=== PATIENT | female | born 1945 | race Caucasian/White ===

== ENCOUNTER 2019-05-13 08:39 | Emergency (ER) | payer OTHER, SELFPAY ==
[2019-05-13 08:40] VITALS: BP 143/87; PULSE 89; RESP 18; TEMP 37; O2SAT 98; BMI 35.7
--- NOTE | 2019-05-13 08:50 | EKG12_ITS ---
Test Reason : PALPS Blood Pressure : / mmHG Vent. Rate : 091 BPM Atrial Rate : 091 BPM P-R Int : 182 ms QRS Dur : 074 ms QT Int : 396 ms P-R-T Axes : 067 040 057 degrees QTc Int : 487 ms Sinus rhythm with frequent Premature ventricular complexes Otherwise normal ECG Confirmed by LOTUS HOLLAND, VAN ([id number]), supervising film or videotape editor ELVIA BARAHONA ([id number]) on 05/15/2019 11:25:29 AM Referred By: SEBASTIEN Confirmed By:VAN GAUTAM MD
[2019-05-13 08:59] VITALS: BP 175/80; PULSE 89; RESP 17; O2SAT 97
--- NOTE | 2019-05-13 09:03 | RAD_ITS ---
STUDY: X-RAY CHEST REASON FOR EXAM: Female, 73 years old. Palpitations TECHNIQUE: Frontal view of the chest COMPARISON: 10/2016 FINDINGS: The lungs are clear. There are no pleural effusions. There is no pneumothorax. The heart is normal in size. The visualized osseous structures are within normal limits. RAD/Chest 1 View (Portable) IMPRESSION: No acute thoracic pathology. Electronically Signed: Elton Amezquita, at 9:24 EST Tel , Service support ,
[2019-05-13 09:06] LABS: Absolute Lymphocyte Count 1.71 X10^3/uL (0.83-4.51); Absolute Neutrophil Count 6.6 X10^3/uL (2.0-7.7); Basophil# 0.04 X10^3/uL; Basophil% 0.5 % (0-1); Eosinophil# 0.06 X10^3/uL; Eosinophils% 0.7 % (0-5); Hematocrit 44.9 % (37-47); Hemoglobin 14.2 g/dL (12.0-15.0); Lymphocyte # 1.71 X10^3/ul (4.0); Lymphocyte % 19.3 % (19-41); Mean Corp Hgb Conc 31.6 g/dL (32-36); Mean Corpuscular Hgb 26.5 pg (27.0-32.0); Mean Corpuscular Volume 83.9 fL (81-99); Mean Platelet Vol. 9.9 fl (6.2-12.0); Monocyte# 0.34 X10^3/uL; Monocyte% 3.8 % (0-10); NRBC Flagged by Analyzer 0 % (0-5); Neutrophil # 6.63 X10^3/uL (2.7-7.7); Neutrophil % 74.7 % (47-70); Platelet Count 316 K/mm3 (150-450); RBC Distribution Width CV 13.5 % (11.6-14.6); RBC Distribution Width SD 41.4 fl (35.1-43.9); Red Blood Count 5.35 M/mm3 (4.2-5.4); White Blood Count 8.9 K/mm3 (4.4-11.0)
[2019-05-13] MEDS: Aspirin 81 MG TAB.CHEW 324 MG PO (09:12)
[2019-05-13 09:13] VITALS: O2SAT 95
[2019-05-13 09:21] LABS: Anion Gap 7 (5-15); BUN 9 mg/dL (7-18); BUN/Creat Ratio 9.1 RATIO (10-20); Calcium,Total 9.5 mg/dL (8.5-10.1); Chloride 100 mmol/L (98-107); Creatinine, Serum 0.98 mg/dL (0.55-1.02); EST Glomerular Filtration Rate 59 mL/min (>60); Est Glom Filt Rate - Afr Amer 71 mL/min (>60); Estimated Creatinine Clearance 46.69 ml/min; Glucose 179 mg/dL (74-106); Potassium 3.7 mmol/L (3.5-5.1); Sodium Level 136 mmol/L (136-145)
--- NOTE | 2019-05-13 10:23 | ED.VIS.GEN ---
History of Present Illness Chief Complaint: Palpitations Informant: Patient Onset: Days Maximum Severity: Mild Narrative: Patient has history of hypertension that is very stable she denies any other health history. 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 she has intermittent episodes of trigeminy and she feels some of these extra heartbeats, she has no history of thyroid disorder her review of systems are all negative she is eating and drinking well bowel and bladder habits are unremarkable and again she is executing all of her daily activities without difficulty Past Medical History - Allergies and Home Meds Allergies/Adverse Reactions: Allergies No Known Allergies Allergy (Verified 05/13/19 08:42) Primary Care Physician: Lupe Torres MD [Primary Care Provider] - Past Medical History: - Smoking Status: Never smoker Review of Systems ROS: - Pretension General: Denies: Chills, Fever, Sweats Eyes: Denies: Visual changes - bilaterally, Diplopia ENT: Denies: Rhinorrhea, Sore throat Cardiovascular: Reports: Palpitations. Denies: Chest pain Respiratory: Denies: Dyspnea, Cough, Dyspnea on exertion Gastrointestinal: Denies: Abdominal pain, Nausea, Vomiting, Diarrhea, Melena, Hematochezia Genitourinary: Denies: Dysuria, Hematuria, Frequency Musculoskeletal: Denies: Back pain, Extremity Pain Skin: Denies: Rash, Wounds Neurological: Denies: Headache, Weakness, Numbness Physical Exam Vital Signs/Narrative: Vital Signs Temp Pulse Resp BP Pulse Ox 05/13/19 09:13 95 05/13/19 08:59 89 17 175/80 H 97 05/13/19 08:40 98.6 F 89 18 143/87 H 98 General: Well nourished, Well developed, No Acute Distress Head: Normocephalic, Atraumatic Eyes: Perrl, EOMI ENT: Moist mucous membranes, No rhinorrhea Neck: Supple, Nontender Cardiovascular: Regular rate, Regular rhythm, No murmurs, - - He has intermittent trigeminy on the claims administrator Respiratory: No distress, CTA bilaterally, Chest nontender Abdomen: Soft, Nontender, Nondistended, Normal bowel sounds Back: Nontender, Normal Inspection Extremities: Nontender, No edema Skin: Normal color, No rash Neurological: Alert, Oriented x3, Cranial nerves II-XII grossly intact, Normal Strength, Normal Sensation Psychological: Normal affect, Normal Mood Diagnostic/Tx/Re-eval - Medical Decision Making Patient's EKG shows a sinus rhythm with some trigeminy no acute injury pattern appreciated rate 90 When screening evaluation with labs magnesium thyroid studies that are pending I spoke with Dr. HOANG SANDOVAL, call cardiology discussed case in detail the patient is comfortable with discharge home does not feel admission would be necessary as she is feeling at baseline except for the occasional sense of heartbeats, He recommended she be started on metoprolol XL 25 mg daily and following up with the office tomorrow or the next day and returning for change in symptoms, the patient understands her thyroid function studies are still pending she was given first dose of the metoprolol he will she will follow-up with her dental insurance biller as above and return for change in symptoms Home stable Final impression palpitations related to PVCs and episodes of trigeminy ED Disposition - Plan for ED Patient: Instructions: Premature Ventricular Contractions Prescriptions: Metoprolol(XL)Succ [Toprol Xl (Beta Baylee)] 25 mg PO DAILY #30 tab Prescription Printed Referrals: Lupe Torres MD [Primary Care Provider] -
[2019-05-13 10:25] LABS: Magnesium 2.6 mg/dL (1.6-2.6)
[2019-05-13] MEDS: Metoprolol(XL)Succ 25 MG Tablet PO (10:44)
[2019-05-13 10:45] VITALS: BP 156/94; PULSE 80; PULSE 84; RESP 13; RESP 20; O2SAT 95; O2SAT 96
[2019-05-13 11:09] LABS: T4 Free Direct 1.11 ng/dL (0.76-1.46)
== END 2019-05-13 10:56 | disposition home or self-care (01) ==
PROVIDERS: Emergency Provider Emergency Medicine; PCP Family Medicine
DX: I49.3 Ventricular premature depolarization (principal); R00.8 Other abnormalities of heart beat; I10 Essential (primary) hypertension; Z79.899 Other long term (current) drug therapy
CPT/HCPCS: 71045; 80048; 83735; 84439; 84443; 84484; 85025; 93005; 99285; A4216

== ENCOUNTER → 2019-05-21 06:06 | Outpatient (CLI) | payer OTHER, SELFPAY ==
[2019-05-16 10:25] VITALS: BMI 34.7
--- NOTE | 2019-05-21 06:07 | ECHOCS_ITS ---
Reason For Study: Arrhythmia Left Ventricle Normal LV size. Left ventricular systolic function is normal. The estimated ejection fraction is 60 %. Stage 1 diastolic dysfunction. No regional wall motion abnormalities noted. Right Ventricle Normal RV size. Normal systolic function. Atria Normal left atrium. Normal right atrium. Mitral Valve Normal mitral valve. Tricuspid Valve The tricuspid valve is not well visualized. Aortic Valve Trisinus/trileaflet aortic valve. Pulmonic Valve The pulmonic valve is not well visualized. Great Vessels Normal aortic root. The pulmonary artery is normal size. Normal inferior vena cava. Pericardium/Pleural No pericardial effusion. Medication 22 gauge I.V. with prn adaptor inserted into right arm. Diluted definity 3ml given slow IV push to enhance endocardial definition. Performed a rapid injection of agitated mix of 9 cc saline and 1cc air to assess for atrial septal defect. MMode/2D Measurements & Calculations LVIDd: 4.6 cm IVSd: 1.1 cm LA dimension: 3.9 cm LVIDs: 3.1 cm LVPWd: 1.1 cm RVDd: 3.3 cm FS: 31.4 % LAV(MOD-bp): 54.0 ml LA A4 area: 17.6 cm2 RA A4 area: 14.5 cm2 LAV(MOD-bp) Indexed: 26.8 ml/m2 LAV(MOD-sp2): 55.9 ml LAV(MOD-sp4): 52.3 ml Time Measurements MV dec time: 0.26 sec Doppler Measurements & Calculations MV E max amarjit: 65.3 cm/sec Lat Peak E' Amarjit: 8.8 cm/sec Med Peak E' Amarjit: 7.9 cm/sec MV A max amarjit: 88.3 cm/sec E/E' lat: 7.4 E/E' med: 8.3 MV E/A: 0.74 MV V2 max: 112.7 cm/sec MV P1/2t max amarjit: 81.9 cm/sec Ao V2 max: 137.7 cm/sec MV max P.1 mmHg MV P1/2t: 84.4 msec Ao max P.6 mmHg MV V2 mean: 62.5 cm/sec MV dec slope: 284.2 cm/sec2 MV mean P.8 mmHg MVA(P1/2t): 2.6 cm2 MV V2 VTI: 29.5 cm LV V1 max: 104.4 cm/sec PA V2 max: 83.8 cm/sec LV V1 max P.4 mmHg Interpretation Summary Normal LV size. Left ventricular systolic function is normal. The estimated ejection fraction is 60 %. Stage 1 diastolic dysfunction. Contrast injection was performed. Ordering Physician: Jese Watts Referring Physician: Jese Watts Performed By: Neo Gonzalez RCS
--- NOTE | 2019-05-21 13:17 | STRESSREP ---
Stress Test Report Exercise stress test. 73-year-old lady with a history of chest pain. Stress protocol: Resting EKG demonstrates normal sinus rhythm with a rate of 69 bpm normal intervals are noted resting blood pressures 160/80 mmHg.. The patient exercised according to regular Sarvan protocol for total duration of 6 minutes and 30 seconds. The maximum heart rate attained was 142 bpm which was 95% of maximum predicted heart rate the maximum workload was 7.7 metabolic equivalents. The patient maintained sinus rhythm throughout the recording. At rest there were no ST or T wave changes noted suggest ischemia peak exercise upsloping ST changes were noted with no meet the criteria for ischemia. No clinical angina was noted. The resting blood pressure was 160/80 mmHg with a peak blood pressure 164/70 mmHg rate-pressure product was 21,400. No clinical angina was noted. Myocardial perfusion protocol. 11.6 mCi of technetium 99m sestamibi was injected at rest. The patient exercised according to regular Sravan protocol for a total duration of 6-1/2 minutes at peak exercise 34.3 mCi of technetium 99m sestamibi was injected stress images were obtained stress and rest images were reconstructed and compared in the short axis vertical long horizontal long axis. Gated images also obtained Perfusion SPECT analysis: Review of the stress images demonstrate normal uptake of tracer noted in all areas of myocardium the resting images similar demonstrate normal uptake of tracer noted in all areas of the myocardium. No reversibility is no suggest ischemia no previous infarct is noted. Gated SPECT analysis: The gated ejection fraction is 75%. Conclusion: Normal exercise myocardial perfusion stress test with no evidence of ischemia at a moderate workload. Preserved ejection fraction. No arrhythmias noted.
== END ==
PROVIDERS: PCP Family Medicine; Referring Provider Internal Medicine Cardiovascular Disease; Visit Provider Internal Medicine Cardiovascular Disease
DX: I49.9 Cardiac arrhythmia, unspecified (principal); R00.2 Palpitations; I10 Essential (primary) hypertension
CPT/HCPCS: 78452; 93017; 93225; 93226; 93306; A9500; Q9957; A4216; C8929

== ENCOUNTER 2020-02-01 19:04 | Emergency (ER) | payer OTHER, SELFPAY ==
[2019-08-15 11:18] VITALS: BMI 34.7
[2020-02-01 19:04] VITALS: BP 139/93; PULSE 85; RESP 15; TEMP 36.8; O2SAT 98; BMI 32.8
--- NOTE | 2020-02-01 19:48 | ED.DCSUM_ITS ---
History of Present Illness Chief Complaint: General Illness Informant: Patient, Family Narrative: 74-year-old female states that she has been generally weak for a month. She is not falling. She can walk. She is not dizzy or lightheaded. She does states that she is tired a lot. She is not had any fever or chills. She states that she followed up with her PCP just this week and had blood work which was all normal. This included a chest x-ray and a urinalysis as well as thyroid testing. She states that she is just not sure what to do at this time. - Past Medical History (1) Essential (primary) hypertension Status: Chronic (2) Hyperlipidemia Status: Chronic Past Medical History - Allergies and Home Meds Allergies/Adverse Reactions: Allergies No Known Allergies Allergy (Verified 02/01/20 19:09) Primary Care Physician: Lupe Torres MD [Primary Care Provider] - Prior records reviewed: Yes Past Medical History: - - Reviewed in problem list Lives: Alone Smoking Status: Never smoker Alcohol: None Drugs: None Review of Systems General: Reports: Malaise. Denies: Chills, Fever Eyes: Denies: Visual changes - bilaterally, Diplopia ENT: Denies: Rhinorrhea, Sore throat Cardiovascular: Denies: Chest pain, Palpitations Respiratory: Denies: Dyspnea, Cough, Dyspnea on exertion Gastrointestinal: Reports: Nausea, Constipation. Denies: Vomiting, Diarrhea Genitourinary: Denies: Dysuria, Hematuria, Frequency Musculoskeletal: Denies: Back pain, Extremity Pain Skin: Denies: Rash, Wounds Neurological: Denies: Headache, Weakness, Parasthesia, Numbness, -, - Endocrine: Denies: Polyuria, Polydipsia, Heat intolerance, Cold intolerance, -, - Physical Exam Vital Signs/Narrative: Vital Signs Temp Pulse Resp BP Pulse Ox 02/01/20 19:04 98.3 F 85 15 139/93 H 98 Inital Vital Signs reviewed: Yes Head: Normocephalic, Atraumatic Eyes: Perrl ENT: Moist mucous membranes Neck: Supple, Nontender Cardiovascular: Regular rate, Regular rhythm Respiratory: No distress, CTA bilaterally Abdomen: Soft, Nontender, Nondistended Back: Nontender, Normal Inspection Extremities: Nontender, No edema Skin: Normal color, No rash Neurological: Alert, Oriented x3, Cranial nerves II-XII grossly intact Psychological: Normal affect, Normal Mood Diagnostic/Tx/Re-eval Laboratory Data 02/01/20 20:05 Urine Color Yellow Urine Clarity Clear Urine pH 7.0 Ur Specific [place] 1.010 Urine Protein Negative Urine Glucose (UA) Normal Urine Ketones 15 H Urine Occult Blood Negative Urine Nitrite Negative Urine Bilirubin Negative Urine Urobilinogen Normal Ur Leukocyte Esterase 100 H Urine RBC 0 SEEN Urine WBC 0-5 SEEN Ur Squamous Epith Cells 0-5 SEEN Urine Bacteria 0 SEEN Urine Mucus 0 SEEN - Medical Decision Making Patient presents with general weakness although her symptoms are vague and she is not having any episodes of falling or difficulty walking she just states he has a brain fog and she is not eating as many calories that she used to. She states she has lost 15 pounds but she has also been eating all protein and has not been eating any fruits or vegetables or carbs. I discussed this with her that this is very similar to a keto diet and that this may be why she feels so ill. I was able to check her lab work from her primary care physician which was all normal including thyroid studies. I did check a urinalysis today and there is ketones in her urine which is consistent with her history of eating less and eating only proteins and meats. I did also discuss with her if she is tired most of the day but there is a possibility that maybe she has sleep apnea. She states she does snore but she does not know if she has apneic episodes. I counseled her that she needs to follow-up with her PCP for discussion of these subjects. Patient was amenable to this plan. I do not believe she needs repeat lab work and imaging. Impression: 1. Generalized weakness ED Disposition - Plan for ED Patient: Disposition: Home or Assisted Living Instructions: ED Weakness [facility] Referrals: Lupe Torres MD [Primary Care Provider] -
[2020-02-01 20:09] LABS: Bacteria 0 SEEN /hpf (None Seen); Mucous, Urine 0 SEEN /hpf (<or=2+); Red Blood Cells-Urine 0 SEEN /hpf (0-5)
[2020-02-01 20:13] LABS: Color, Urine Yellow (Yellow); Glucose, Dipstick Normal (Normal); Ketone-Dipstick 15 mg/dl (Negative); Leukocyte Esterase-Dipstick 100 /ul (Negative); Nitrite-Dipstick Negative (Negative); Occult Blood-Urine Negative /ul (Negative); Protein-Dipstick Negative (Negative); Urine Bilirubin Dipstick Negative (Negative); Urine Clarity Clear (Clear); Urine Urobilinogen Normal (Normal)
[2020-02-01 20:23] LABS: Squamous Epithelial Cells - UA 0-5 SEEN /hpf (5-10); White Blood Cells 0-5 SEEN /hpf (0-5)
[2020-02-01 21:22] VITALS: BP 131/69; PULSE 67; RESP 15; O2SAT 98
== END 2020-02-01 21:24 | disposition home or self-care (01) ==
PROVIDERS: Emergency Provider Student in an Organized Health Care Education/Training Program; PCP Family Medicine
DX: R53.1 Weakness (principal); I10 Essential (primary) hypertension; E78.5 Hyperlipidemia, unspecified; Z79.899 Other long term (current) drug therapy
CPT/HCPCS: 81001; 99282

== ENCOUNTER 2020-12-31 07:37 | Emergency (ER) | payer OTHER, SELFPAY ==
[2020-12-31 07:38] VITALS: BP 150/70; PULSE 88; RESP 16; TEMP 36.4; O2SAT 98; BMI 36.8
[2020-12-31 07:40] VITALS: BP 151/80; PULSE 79; RESP 13; O2SAT 98
[2020-12-31 07:55] VITALS: O2SAT 98
--- NOTE | 2020-12-31 07:55 | EKG12_ITS ---
Test Reason : CP/PALP Blood Pressure : / mmHG Vent. Rate : 080 BPM Atrial Rate : 080 BPM P-R Int : 164 ms QRS Dur : 088 ms QT Int : 414 ms P-R-T Axes : 072 029 032 degrees QTc Int : 477 ms Normal sinus rhythm Possible MIR Confirmed by AB HOLLAND, SAVANNAH ([id number]), multimedia editor JULIANE LICEA ([id number]) on 01/05/2021 12:52:41 PM Referred By: JOSE/DRISS Confirmed By:SAVANNAH BERGER MD
--- NOTE | 2020-12-31 08:05 | RAD_ITS ---
STUDY: X-RAY CHEST REASON FOR EXAM: Female, 75 years old. Chest pain TECHNIQUE: Single AP portable view of the chest. COMPARISON: Comparison is made with prior study dated 05/13/2019. FINDINGS: EKG electrodes are seen. Hyperinflation. There is no demonstrated pleural abnormality. Normal size heart. Normal mediastinum and catherine. Normal visualized pulmonary arteries. There is atherosclerotic calcification of the aortic arch with tortuosity. There are diffuse degenerative changes of the visualized thoracic spine. Normal visualized ribs, clavicles, and shoulders. There is no demonstrated abnormality of the visualized soft tissue structures of the upper abdomen. RAD/Chest 1 View (Portable) IMPRESSION: Hyperinflation. The lungs are clear. Electronically Signed: Rodo Nixon MD at 8:27 EDT , Service support ,
[2020-12-31 08:12] LABS: Absolute Lymphocyte Count 2.26 X10^3/uL (0.83-4.51); Basophil# 0.03 X10^3/uL; Basophil% 0.3 % (0-1); Eosinophil# 0.21 X10^3/uL; Eosinophils% 1.9 % (0-5); Hemoglobin 14.8 g/dL (12.0-15.0); Lymphocyte # 2.26 X10^3/ul (0.83-4.51); Lymphocyte % 20.1 % (19-41); Mean Corp Hgb Conc 32.2 g/dL (32-36); Mean Corpuscular Hgb 27.2 pg (27.0-32.0); Mean Corpuscular Volume 84.6 fL (81-99); Mean Platelet Vol. 10.8 fl (6.2-12.0); Monocyte# 0.63 X10^3/uL; Monocyte% 5.6 % (0-10); NRBC Flagged by Analyzer 0 % (0-5); Neutrophil # 8.04 X10^3/uL (2.7-7.7); Neutrophil % 71.6 % (47-70); Platelet Count 299 K/mm3 (150-450); RBC Distribution Width SD 42.8 fl (35.1-43.9); Red Blood Count 5.44 M/mm3 (4.2-5.4); White Blood Count 11.2 K/mm3 (4.4-11.0)
--- NOTE | 2020-12-31 08:14 | ED.VIS.CHEST ---
HPI History of Present Illness Chief Complaint: Palpitations Informant: patient Onset/Context/Timing Onset: Days and Month(s) Activity at onset: gradual Timing: Intermittent Worsened By: Nothing Relieved By: Nothing Narrative Narrative: 75-year-old female history of palpitations that she said has been diagnosed as PVCs. No thyroid history. No history of CAD or IA no stents and no prior cath. Says when her anxiety gets worse her PVCs get worse she has been more anxious lately. This is been going on 18 months worse in the last several days. Denies any chest pain. No shortness of breath. Has felt somewhat fatigued. Denies nausea, vomiting, diarrhea or fever. No melena. Recent Illness/Hospitalization: No CVD Risk Factors: Negative for Diabetes, Hypercholesterolemia and Smoking PE Risk Factors: Negative for Recent Travel/Surgery, Recent Immobilization, Prior DVT or PE, Cancer and OCP + Smoking + >/=35 TAD Risk Factors: Negative for Marfan's Syndrome and Hypertension [facility] Medical History (Updated 12/31/20 @ 09:[address] Josse Junior MD) Anxiety Essential (primary) hypertension Hyperlipidemia Obesity Prediabetes Home Medications atorvastatin 10 mg PO QHS 10/29/16 [History Last Taken Unknown] citalopram 20 mg PO DAILY 10/29/16 [History Last Taken Unknown] calcium carb,cit 300 mg-magnesium cit,ox 150 mg-vit D3 400 unit tablet 1 tab PO DAILY 05/16/19 [History Last Taken Unknown] multivitamin 1 cap PO DAILY 05/16/19 [History Last Taken Unknown] omega 2-qsw-xot-fish oil 1,000 mg (120 mg-180 mg) capsule 1 cap PO DAILY 05/16/19 [History Last Taken Unknown] potassium gluconate 595 mg (99 mg) tablet 595 mg PO DAILY 05/16/19 [History Last Taken Unknown] amlodipine 10 mg PO DAILY 02/01/20 [History Last Taken Unknown] Allergy/AdvReac Type Severity Reaction Status Date / Time No Known Allergies Allergy Verified 02/01/20 19:09 Family History Other Breast cancer Diabetes Surgical History History of appendectomy History of breast biopsy History of partial colectomy Social History Smoking Status: Never smoker ROS ROS ED ROS Narrative 75-year-old female no acute distress. Vital signs stable afebrile. Normal exam. Occasionally few PVCs. Otherwise normal sinus rhythm. Exam benign. Lungs are clear. Heart regular rate and rhythm about 80. Abdomen soft nontender. Extremities nontender. No edema. Review of Systems ROS Unobtainable: Denies due to encephalopathy Constitutional Constitutional ED: Denies chills or fever(s) Eyes Eyes: Denies none ENT ENT ED: Denies ear pain Cardiovascular Cardiovascular: Denies chest pain Respiratory/Chest Respiratory/Chest: Denies cough or dyspnea Gastrointestinal Gastrointestinal: Denies abdominal pain, diarrhea, nausea or vomiting Genitourinary Genitourinary ED: Denies dysuria Musculoskeletal Musculoskeletal: Denies myalgias Integumentary Denies rash Neurologic Neurologic: Denies headache(s) Psychiatric Psychiatric: Denies depression Endocrine Endocrinology: Denies polyuria Hematologic/Lymphatic Hematologic/Lymphatic: Denies easy bruising Allergic/Immunologic Allergic/Immunologic ED: Denies urticaria EXAM Physical Exam Narrative Exam Narrative: 75-year-old female normal exam. Occasional PVCs. Const Vital Signs: 12/31/20 07:38 12/31/20 07:40 12/31/20 07:55 Temperature 97.5 F L Temperature Source Temporal Pulse Rate 88 79 Respiratory Rate 16 13 Respiratory Effort Normal Non-Labored Respiratory Pattern Normal Blood Pressure 150/70 H 151/80 H Blood Pressure Mean 96 103 Pulse Ox 98 98 98 Oxygen Delivery Method Room Air Room Air Room Air Positive well nourished and well developed; Negative for obese or cachectic General Appearance ED: well developed; Negative for cachectic Nutritional Appearance: Negative for cachectic or obese HEENT Reports moist mucous membranes normocephalic and atraumatic; Negative for trauma Eyes PERRL and EOMs intact bilaterally Neck no lymphadenopathy, supple and no JVD Chest Wall inspection of chest normal and palpation of chest normal Resp normal respiratory effort and clear to auscultation bilaterally Effort and Inspection: respiratory distress Auscultation: Negative for rales, rhonchi or wheezes Cardio regular rate, regular rhythm, S1 normal heart sound, S2 normal heart sound and no murmurs Rate: Negative for bradycardia or tachycardic GI normal to inspection, nondistended, normoactive bowel sounds, soft to palpation, non-tender, non-distended and no masses Back/Spine no CVA tenderness General Back: Negative for CVA tenderness Extremity normal to inspection General Extremety ED: Negative for edema or tenderness General Extremity: Negative for edema Neuro oriented x3 and CN's II-XII intact bilaterally Sensorium / Orientation: awake, alert, oriented to person, oriented to place and oriented to time Motor Exam: strength 5/5 throughout Psych mental status grossly normal Mood & Affect: anxious Skin no rashes or lesions noted and no wounds Heart Score History: Slightly/Non-Suspicious ECG: Normal Age: >/= 65 years Risk Factors: 1 or 2 Risk Factors Troponin: </= Normal Limit Score: 3 MDM MDM MDM Narrative Medical decision making narrative: 75-year-old with acute on chronic palpitations. Normal exam. Few PVCs. Cardiac work-up. Repeat exam patient doing well at 9:45 AM and will be discharged home. Lab Data Attestation: I reviewed the patient's lab results. Lab results narrative: CBC shows a white count 1.2. Hemoglobin 14.8. BMP unremarkable gap of 5 creatinine 1. Glucose 152. Troponin . Labs: Laboratory Results - last 24 hr 12/31/20 12/31/20 07:37 07:37 WBC 11.2 H RBC 5.44 H Hgb 14.8 Hct 46.0 MCV 84.6 MCH 27.2 MCHC 32.2 RDW Std Deviation 42.8 RDW Coeff of Esteban 14.0 Plt Count 299 MPV 10.8 Immature Gran % (Auto) 0.500 Neut % (Auto) 71.6 H Lymph % (Auto) 20.1 [place] % (Auto) 5.6 Eos % (Auto) 1.9 Baso % (Auto) 0.3 Absolute Neuts (auto) 8.0 H Absolute Lymphs (auto) 2.26 Nucleated RBC % 0 Sodium 138 Potassium 3.6 Chloride 103 Carbon Dioxide 30.0 Anion Gap 5 BUN 17 Creatinine 1.07 H Estim Creat Clear Calc 41.51 Est GFR (MDRD) Af Amer 64 Est GFR (MDRD) Non-Af 53 L BUN/Creatinine Ratio 15.9 Glucose 152 H Calcium 9.0 Troponin I High Sens 6 Radiography Chest X-Ray - ED: 1 View, Read by ED Physician, Normal, Heart, Lungs, Mediastinum, Bony Structures, No Acute Disease and Chronic Changes Diagnostic Testing: Radiology Impression Chest X-Ray 12/31/20 08:05 IMPRESSION: Hyperinflation. The lungs are clear. Electronically Signed: Rodo Nixon MD at 8:27 EDT , Service support , Discharge Plan Triage Chief Complaint: Palpitations ED Provider: Josse Junior Dx/Rx/DC Orders Clinical Impression: Asymptomatic PVCs Instructions: ED Palpitations Prescriptions: No Action multivitamin capsule 1 cap PO DAILY RF: 0 potassium gluconate 595 mg (99 mg) tablet 595 mg PO DAILY RF: 0 calcium carb,cit-mag cit,ox-D3 300 mg-150 mg- 400 unit tablet 1 tab PO DAILY RF: 0 omega 1-kmu-mvp-fish oil [Fish Oil] 1,000 mg (120 mg-180 mg) capsule 1 cap PO DAILY RF: 0 atorvastatin 10 MG tablet 10 mg PO QHS RF: 0 citalopram 20 MG tablet 20 mg PO DAILY RF: 0 amlodipine 5 MG tablet 10 mg PO DAILY RF: 0 Primary Care Provider: Lupe Torres Referrals: Lupe Torres MD [Primary Care Provider] - As Needed Activity Restrictions/Additional Instructions: Follow-up with your doctor as needed. Your lab work, EKG and chest x-ray today were normal. Disposition Disposition: Home, Self Care
[2020-12-31 08:23] LABS: Anion Gap 5 (5-15); BUN 17 mg/dL (7-18); BUN/Creat Ratio 15.9 RATIO (10-20); Chloride 103 mmol/L (98-107); Creatinine, Serum 1.07 mg/dL (0.55-1.02); EST Glomerular Filtration Rate 53 mL/min (>60); Est Glom Filt Rate - Afr Amer 64 mL/min (>60); Estimated Creatinine Clearance 41.51 ml/min; Glucose 152 mg/dL (74-106); Potassium 3.6 mmol/L (3.5-5.1); Sodium Level 138 mmol/L (136-145); Troponin-I HS 6 pg/mL (3.0-54.0)
[2020-12-31 09:48] VITALS: BP 143/71; PULSE 70; RESP 13; O2SAT 92
== END 2020-12-31 10:06 | disposition home or self-care (01) ==
PROVIDERS: Emergency Provider Emergency Medicine; PCP Family Medicine
DX: I49.3 Ventricular premature depolarization (principal); F41.9 Anxiety disorder, unspecified; I10 Essential (primary) hypertension; E78.5 Hyperlipidemia, unspecified; E66.9 Obesity, unspecified; Z79.899 Other long term (current) drug therapy
CPT/HCPCS: 71045; 80048; 84484; 85025; 93005; 99284; A4216

== ENCOUNTER 2021-02-02 10:20 | Emergency (ER) | payer OTHER, SELFPAY ==
[2021-02-02 10:21] VITALS: BP 133/85; PULSE 85; RESP 16; TEMP 36.6; O2SAT 99; BMI 35.7
--- NOTE | 2021-02-02 10:44 | EKG12_ITS ---
Test Reason : PALPITATIONS Blood Pressure : / mmHG Vent. Rate : 079 BPM Atrial Rate : 079 BPM P-R Int : 168 ms QRS Dur : 086 ms QT Int : 414 ms P-R-T Axes : 079 045 057 degrees QTc Int : 474 ms Sinus rhythm with occasional Premature ventricular complexes Biatrial enlargement Abnormal ECG Confirmed by LOTUS HOLLAND, VAN ([id number]), slot editor JULIANE LICEA ([id number]) on 02/04/2021 9:17:52 AM Referred By: FARHANA/MAHSA Confirmed By:VAN GAUTAM MD
--- NOTE | 2021-02-02 10:46 | EDS_ITS ---
HPI History of Present Illness Chief Complaint: Weakness Detail of Chief Complaint: Palpitations, weak and tired Informant: patient Onset/Context/Timing Onset: Days Timing: Intermittent Current Severity: Mild Maximum Severity: Moderate Narrative Narrative: Patient presents secondary to episodes of back pain and diaphoresis. Patient has a history of frequent PVCs. She saw the cardiology office in late December. She had been unable to tolerate metoprolol in the past. They started her on Coreg initially once a day and then she switched to twice daily dosing 5 days ago. Patient states she had 2 episodes over the weekend where she got back pain between her spine and shoulder blade associated with diaphoresis. Patient states she has a history of back pain and is not unusual for her to get this pain. She did not check her vital signs at the time of the episode. She is unsure if this is related to her new medication. Patient states she took her medication last night and slept well. Today she just feels fatigued and tired. She denies chest pain or shortness of breath at this time. [facility] Medical History (Updated 02/02/21 @ 13:[address] Asiya Marc MD) Anxiety Essential (primary) hypertension Hyperlipidemia Obesity Prediabetes Home Medications atorvastatin 10 mg PO QHS 10/29/16 [History Last Taken Unknown] citalopram 20 mg PO DAILY 10/29/16 [History Last Taken Unknown] calcium carb,cit 300 mg-magnesium cit,ox 150 mg-vit D3 400 unit tablet 1 tab PO DAILY 05/16/19 [History Last Taken Unknown] multivitamin 1 cap PO DAILY 05/16/19 [History Last Taken Unknown] omega 6-ehq-wzo-fish oil 1,000 mg (120 mg-180 mg) capsule 1 cap PO DAILY 05/16/19 [History Last Taken Unknown] potassium gluconate 595 mg (99 mg) tablet 595 mg PO DAILY 05/16/19 [History Last Taken Unknown] amlodipine 10 mg PO DAILY 02/01/20 [History Last Taken Unknown] carvedilol 3.125 mg tablet 3.125 mg PO BID #60 tab 01/15/21 [Rx Last Taken Unknown] hydrocodone-acetaminophen 1 tab PO Q6H PRN 3 Days #10 tab 02/02/21 [Rx Last Taken Unknown] Allergy/AdvReac Type Severity Reaction Status Date / Time No Known Allergies Allergy Verified 02/02/21 10:20 Family History Other Breast cancer Diabetes Surgical History History of appendectomy History of breast biopsy History of partial colectomy Social History Smoking Status: Never smoker ROS ROS ED Constitutional Constitutional ED: Denies chills or fever(s) Eyes Eyes: Denies change in vision ENT ENT ED: Denies sore throat Cardiovascular Cardiovascular: Denies chest pain Respiratory/Chest Respiratory/Chest: Denies cough or dyspnea Gastrointestinal Gastrointestinal: Denies abdominal pain, diarrhea, nausea or vomiting Genitourinary Genitourinary ED: Denies dysuria Musculoskeletal Musculoskeletal: Reports back pain Integumentary Denies rash Neurologic Neurologic: Denies headache(s) or weakness Psychiatric Psychiatric: Reports anxiety Allergic/Immunologic Allergic/Immunologic ED: Denies urticaria EXAM Physical Exam Const Vital Signs: 02/02/21 10:21 02/02/21 10:48 02/02/21 11:20 Temperature 97.8 F Temperature Source Temporal Pulse Rate 85 73 Respiratory Rate 16 15 Respiratory Effort Normal Non-Labored Respiratory Pattern Normal Blood Pressure 133/85 H Blood Pressure Mean 101 Pulse Ox 99 94 Oxygen Delivery Method Room Air Room Air 02/02/21 12:00 Temperature Temperature Source Pulse Rate 76 Respiratory Rate 11 L Respiratory Effort Respiratory Pattern Blood Pressure Blood Pressure Mean Pulse Ox 97 Oxygen Delivery Method Room Air Positive well nourished and well developed General Appearance ED: well developed HEENT Reports normocephalic and head/scalp atraumatic Eyes PERRL and EOMs intact bilaterally Neck supple Chest Wall inspection of chest normal and palpation of chest normal Resp normal respiratory effort and clear to auscultation bilaterally Cardio regular rate and regular rhythm GI normal to inspection, nondistended, normoactive bowel sounds Palpation: soft Extremity normal to inspection Neuro oriented x3 and no sensory deficits noted Sensorium / Orientation: alert Motor Exam: strength 5/5 throughout Psych mental status grossly normal Skin no rashes or lesions noted MDM MDM MDM Narrative Medical decision making narrative: Patient was placed on panel monitor. EKG, lab work, chest x-ray obtained. Lab Data Attestation: I reviewed the patient's lab results. Labs: Laboratory Results - last 24 hr 02/02/21 02/02/21 10:38 10:38 WBC 7.8 RBC 5.33 Hgb 14.4 Hct 45.7 MCV 85.7 MCH 27.0 MCHC 31.5 L RDW Std Deviation 43.2 RDW Coeff of Esteban 13.8 Plt Count 299 MPV 10.1 Immature Gran % (Auto) 1.300 H Neut % (Auto) 68.6 Lymph % (Auto) 19.7 [place] % (Auto) 6.3 Eos % (Auto) 3.6 Baso % (Auto) 0.5 Absolute Neuts (auto) 5.4 Absolute Lymphs (auto) 1.54 Nucleated RBC % 0 Sodium 139 Potassium 3.9 Chloride 103 Carbon Dioxide 29.0 Anion Gap 7 BUN 17 Creatinine 0.95 Estim Creat Clear Calc 46.75 Est GFR (MDRD) Af Amer 74 Est GFR (MDRD) Non-Af 61 BUN/Creatinine Ratio 17.9 Glucose 133 H Calcium 9.2 Troponin I High Sens 8 TSH 2.25 Radiography Chest X-Ray - ED: Read by ED Physician and Chronic Changes Diagnostic Testing: Clinical Impression(s) from Imaging Studies Chest X-Ray 02/02/21 11:15 IMPRESSION: Hyperinflation. No acute infiltrate is seen. Electronically Signed: Rodo Nixon MD at 11:55 EDT , Service support , EKG Initial EKG: Attestation: I personally reviewed and interpreted this EKG as follows: Interpretation: Sinus Rhythm (Sinus at 79 with no acute ischemia. Occasional PVCs noted.) Treatment and Re-Evaluation Comments:: Patient has had no episodes of palpitations while in the emergency room. Lab work is unremarkable. Chest x-ray reveals chronic changes. I discussed the case with Dr. Watts, cardiology on-call. He did recommend she stay on the Coreg. Patient does discussed these episodes of back pain that caused spasm. She will be written for some pain medication to use when these occur. I do not believe it is related to the medication changes. Discharge Plan Triage Chief Complaint: Weakness ED Provider: Asiya Marc Dx/Rx/DC Orders Clinical Impression: Back pain Instructions: ED Back Pain (Acute or Chronic) Prescriptions: New hydrocodone-acetaminophen 5-325 mg tablet 1 tab PO Q6H PRN (Reason: pain) 3 Days Qty: 10 RF: 0 No Action multivitamin capsule 1 cap PO DAILY RF: 0 potassium gluconate 595 mg (99 mg) tablet 595 mg PO DAILY RF: 0 calcium carb,cit-mag cit,ox-D3 300 mg-150 mg- 400 unit tablet 1 tab PO DAILY RF: 0 omega 4-qij-eqh-fish oil [Fish Oil] 1,000 mg (120 mg-180 mg) capsule 1 cap PO DAILY RF: 0 carvedilol 3.125 mg tablet 3.125 mg PO BID Qty: 60 RF: 11 atorvastatin 10 MG tablet 10 mg PO QHS RF: 0 citalopram 20 MG tablet 20 mg PO DAILY RF: 0 amlodipine 5 MG tablet 10 mg PO DAILY RF: 0 Primary Care Provider: Lupe Torres Referrals: Jese Watts MD [STAFF PHYSICIAN] - As Needed Lupe Torres MD [Primary Care Provider] - Disposition Disposition: Home, Self Care
[2021-02-02 10:54] LABS: Absolute Lymphocyte Count 1.54 X10^3/uL (0.83-4.51); Absolute Neutrophil Count 5.4 X10^3/uL (2.0-7.7); Basophil# 0.04 X10^3/uL; Basophil% 0.5 % (0-1); Eosinophil# 0.28 X10^3/uL; Eosinophils% 3.6 % (0-5); Hematocrit 45.7 % (37-47); Hemoglobin 14.4 g/dL (12.0-15.0); Lymphocyte # 1.54 X10^3/ul (0.83-4.51); Lymphocyte % 19.7 % (19-41); Mean Corp Hgb Conc 31.5 g/dL (32-36); Mean Corpuscular Volume 85.7 fL (81-99); Mean Platelet Vol. 10.1 fl (6.2-12.0); Monocyte# 0.49 X10^3/uL; Monocyte% 6.3 % (0-10); NRBC Flagged by Analyzer 0 % (0-5); Neutrophil # 5.35 X10^3/uL (2.7-7.7); Neutrophil % 68.6 % (47-70); Platelet Count 299 K/mm3 (150-450); RBC Distribution Width CV 13.8 % (11.6-14.6); RBC Distribution Width SD 43.2 fl (35.1-43.9); Red Blood Count 5.33 M/mm3 (4.2-5.4); White Blood Count 7.8 K/mm3 (4.4-11.0)
--- NOTE | 2021-02-02 11:15 | RAD_ITS ---
STUDY: X-RAY CHEST REASON FOR EXAM: Female, 75 years old. Cp TECHNIQUE: Single AP portable view of the chest. COMPARISON: Comparison is made with prior study dated 12/31/2020. FINDINGS: EKG electrodes are seen. There is hyperinflation of the lungs consistent with chronic obstructive lung disease (COPD). There is no demonstrated pleural abnormality. Normal size heart. Normal mediastinum and catherine. Normal visualized pulmonary arteries. Normal visualized aortic arch and descending thoracic aorta. There are diffuse degenerative changes of the visualized thoracic spine. Normal visualized ribs, clavicles, and shoulders. There is no demonstrated abnormality of the visualized soft tissue structures of the upper abdomen. RAD/Chest 1 View (Portable) IMPRESSION: Hyperinflation. No acute infiltrate is seen. Electronically Signed: Rodo Nixon MD at 11:55 EDT , Service support ,
[2021-02-02 11:20] VITALS: PULSE 73; RESP 15; O2SAT 94
[2021-02-02 11:21] LABS: Anion Gap 7 (5-15); BUN 17 mg/dL (7-18); BUN/Creat Ratio 17.9 RATIO (10-20); Calcium,Total 9.2 mg/dL (8.5-10.1); Chloride 103 mmol/L (98-107); Creatinine, Serum 0.95 mg/dL (0.55-1.02); EST Glomerular Filtration Rate 61 mL/min (>60); Est Glom Filt Rate - Afr Amer 74 mL/min (>60); Estimated Creatinine Clearance 46.75 ml/min; Glucose 133 mg/dL (74-106); Potassium 3.9 mmol/L (3.5-5.1); Sodium Level 139 mmol/L (136-145); Thyroid Stim Hormone (TSH) 2.25 uIU/mL (0.358-3.74); Troponin-I HS 8 pg/mL (3.0-54.0)
[2021-02-02 12:00] VITALS: PULSE 76; RESP 11; O2SAT 97
== END 2021-02-02 13:20 | disposition home or self-care (01) ==
PROVIDERS: Emergency Provider Emergency Medicine; PCP Family Medicine
DX: M54.6 Pain in thoracic spine (principal); F41.9 Anxiety disorder, unspecified; I10 Essential (primary) hypertension; E78.5 Hyperlipidemia, unspecified; E66.9 Obesity, unspecified; Z79.899 Other long term (current) drug therapy
CPT/HCPCS: 71045; 80048; 84443; 84484; 85025; 93005; 99283